=== PATIENT | female | born 1960 | race Caucasian/White ===

== ENCOUNTER 2016-04-23 14:24 | Emergency (ER) | payer OTHER ==
--- NOTE | 2016-04-23 14:46 | ER Document Report ---
ED Medical Screen (RME) - General Chief Complaint: Leg Pain Stated Complaint: LEG PAIN, SWELLING Mode of Arrival: Ambulatory Information source: Patient Notes: 55-year-old female presents to the emergency department complaining of right lower leg pain, swelling, and paresthesias over the last 4 days. Denies trauma or obvious injury. I have greeted and performed a rapid initial assessment of this patient. A comprehensive ED assessment and evaluation of the patient, analysis of test results and completion of the medical decision making process will be conducted by additional ED providers. TRAVEL OUTSIDE OF THE [place] IN LAST 30 DAYS: No - Related Data Allergies/Adverse Reactions: No Known Allergies Allergy (Unverified 04/23/16 14:41) Past Medical History - Social History Chew tobacco use (# tins/day): No Frequency of alcohol use: Occasional Drug Abuse: None Renal/ Medical History: Denies: Hx Peritoneal Dialysis Physical Exam - Vital signs Vitals: Temp Pulse Resp BP Pulse Ox 97.9 F 86 18 143/58 H 95 04/23/16 14:35 04/23/16 14:35 04/23/16 14:35 04/23/16 14:35 04/23/16 14:35 - General General appearance: Appears well, Alert In distress: None - Cardiovascular Pulses: Normal: Dorsalis pedis Normal capillary refill: Yes Course - Vital Signs Vital signs: Temp Pulse Resp BP Pulse Ox 97.9 F 86 18 143/58 H 95 04/23/16 14:35 04/23/16 14:35 04/23/16 14:35 04/23/16 14:35 04/23/16 14:35
--- NOTE | 2016-04-23 18:05 | XCELERA REPORT ---
[address] [address] Lower Extremity Venous Evaluation Name: WON ACOSTA Age: 55 yrs Gender: Female : 1960 Patient Status: Preadmit Patient Location: ER Study Date: 04/23/2016 03:09 PM Procedure: Color flow and duplex imaging of the veins of the right lower extremity as well as the left Common Femoral vein. Reason For Study: right lower leg pain, swelling, paresthesias Ordering Physician: GURU ESCALANTE Performed By: Jerardo Tillman Right Sided Venous Evaluation Normal vessel filling wall to wall, compression and augmentation as well as Colour flow down to the infrageniculate veins. Spot arterial check in the Dorsalis Pedis and Posterior Tibial arteries, normal. Left Sided Venous Evaluation The left common femoral vein is fully compressible. Spontaneous and phasic flow is present in the left common femoral vein. Critical Findings Discussed with RIAN Escalante at 1800. Interpretation Summary No duplex evidence of DVT or obstruction in the right lower extremity nor in the left Common Femoral vein. : GURU ESCALANTE > Xiang Kay
--- NOTE | 2016-04-23 18:51 | ER Document Report ---
ED Extremity Problem, Lower - General Chief Complaint: Leg Pain Stated Complaint: LEG PAIN, SWELLING Time seen by provider: 18:40 Mode of Arrival: Ambulatory Information source: Patient Notes: 55 yo female c/o posterior right knee swelling and pain this week. Then noticed swelling to ankle yesterday. Spouse states that she injured it 2 weeks ago, then again when getting out of the truck on wednesday, and this pain started on wednesday. She already had a venous doppler ultrasound done from triage and it is negative. TRAVEL OUTSIDE OF THE [place] IN LAST 30 DAYS: No - Related Data Allergies/Adverse Reactions: No Known Allergies Allergy (Unverified 04/23/16 14:41) Past Medical History - General Information source: Patient - Social History Smoking Status: Current Every Day Smoker Chew tobacco use (# tins/day): No Frequency of alcohol use: Occasional Drug Abuse: None Lives with: Spouse/Significant other Family History: Reviewed & Not Pertinent Patient has suicidal ideation: No Patient has homicidal ideation: No - Past Medical History Cardiac Medical History: Reports: Hx Hypercholesterolemia, Hx Hypertension Endocrine Medical History: Reports: Hx Diabetes Mellitus Type 2 Renal/ Medical History: Denies: Hx Peritoneal Dialysis Surgical Hx: Negative Review of Systems - Review of Systems Constitutional: No symptoms reported EENT: No symptoms reported Cardiovascular: No symptoms reported Respiratory: No symptoms reported Gastrointestinal: No symptoms reported Genitourinary: No symptoms reported Female Genitourinary: No symptoms reported Musculoskeletal: See HPI Skin: No symptoms reported Hematologic/Lymphatic: No symptoms reported Neurological/Psychological: No symptoms reported Physical Exam - Vital signs Vitals: Temp Pulse Resp BP Pulse Ox 97.9 F 86 18 143/58 H 95 04/23/16 14:35 04/23/16 14:35 04/23/16 14:35 04/23/16 14:35 04/23/16 14:35 Interpretation: Normal - General General appearance: Appears well, Alert In distress: None - HEENT Head: Normocephalic, Atraumatic Eyes: Normal Pupils: PERRL Neck: Supple - Respiratory Respiratory status: No respiratory distress Chest status: Nontender Breath sounds: Normal Chest palpation: Normal - Cardiovascular Rhythm: Regular Heart sounds: Normal auscultation Murmur: No - Abdominal Inspection: Normal Distension: No distension Bowel sounds: Normal Tenderness: Nontender Organomegaly: No organomegaly - Back Back: Normal, Nontender - Extremities General upper extremity: Normal inspection, Nontender, Normal color, Normal ROM , Normal temperature General lower extremity: Normal inspection, Nontender, Normal color, Normal ROM , Normal temperature, Normal weight bearing. No: Fabiano's sign Knee: Tender - mild posterior knee, no blue's cyst, minimal anterior swelling. Calf: Tender - minimal over the lateral muslce Ankle: Nontender, Edema Notes: 2 + DP and cap refill normal right foot - Neurological Neuro grossly intact: Yes Cognition: Normal Orientation: AAOx4 [place] Coma Scale Eye Opening: Spontaneous [place] Coma Scale Verbal: Oriented [place] Coma Scale Motor: Obeys Commands [place] Coma Scale Total: 15 Speech: Normal Motor strength normal: LUE, RUE, LLE, RLE Sensory: Normal - Psychological Associated symptoms: Normal affect, Normal mood - Skin Skin Temperature: Warm Skin Moisture: Dry Skin Color: Normal Skin irregularity: negative: Rash Course - Re-evaluation Re-evalutation: 04/23/16 18:49 I have consulted with the supervisory physician per [facility] Guidelines. Dr. ANDERSEN. Venous Doppler ultrasound was negative. 04/24/16 19:12 vitals stable at discharge - Vital Signs Vital signs: Temp Pulse Resp BP Pulse Ox 98.8 F 74 20 139/55 H 95 04/23/16 19:12 04/23/16 19:12 04/23/16 19:12 04/23/16 19:12 04/23/16 19:12 - Laboratory Laboratory results interpreted by me: 04/23/16 14:55 POC Glucose 175 H Discharge - Discharge Clinical Impression: calf pain, Right ankle swelling, posterior right knee pain Condition: Good Disposition: HOME, SELF-CARE Instructions: Edema, Peripheral ([facility]), Elevate the Injury ([facility]), Sprained Knee ([facility]), Acetaminophen Additional Instructions: elevate above your heart while reclined see your doctor for follow up to er if worse See orthopedic doctor if persists Please complete the patient satisfaction survey if you get one, and return it.. If you do not receive a survey, then you can go to the [facility] website, [email or web address] and place your comments about your very good care. Thank you very much. It was a pleasure being your medical provider today. Forms: Return to Work Referrals: MARYSE GRAMAJO MD [ACTIVE STAFF] - Follow up as needed
[2016-04-23 19:14] VITALS: BP 139/55
== END 2016-04-23 19:12 | disposition home or self-care (01) ==
LOC: ER 14:24
DX: M25.561 Pain in right knee (principal); M25.471 Effusion, right ankle; M79.669 Pain in unspecified lower leg; M79.89 Other specified soft tissue disorders; F17.200 Nicotine dependence, unspecified, uncomplicated; E11.9 Type 2 diabetes mellitus without complications; I10 Essential (primary) hypertension
CPT/HCPCS: 82962; 93971; 99284